=== PATIENT | male | born 1955 | race Two or more races ===

== ENCOUNTER 2021-03-26 06:02 | Emergency (ER) | payer OTHER ==
[~2021-03-26] VITALS: Ht 175.3 cm; Wt 97.7 kg
[2021-03-26] MEDS ORDERED: DIPH,PERTUSS(ACELL),TET VAC/PF 0.5 ML IM-VACC ONE ×2 (07:30→08:02)
[2021-03-26] MEDS ORDERED: LIDOCAINE 1%-EPI 1:100K, 20ML SQ ONE (07:30)
[2021-03-26] MEDS ORDERED: LIDOCAINE-MPF 1%, 5ML ONE ×2 (08:01→08:02)
[2021-03-26 09:21] VITALS: BP 124/74
== END 2021-03-26 09:23 | disposition home or self-care (01) ==
LOC: ED 09:20
DX: S01.01XA Laceration without foreign body of scalp, initial encounter (principal); S09.90XA Unspecified injury of head, initial encounter; W22.8XXA Striking against or struck by other objects, initial encounter; Y93.89 Activity, other specified; Y92.69 Other specified industrial and construction area as the place of occurrence of the external cause; Y99.0 Civilian activity done for income or pay
CPT/HCPCS: 12002; 90471; 90715; 99283

== ENCOUNTER 2021-04-05 14:05 | Emergency (ER) | payer OTHER ==
[~2021-04-05] VITALS: Ht 160 cm; Wt 97.4 kg
[2021-04-05 14:07] VITALS: BP 152/91
== END 2021-04-05 15:03 ==
LOC: ED 14:50
DX: S01.01XD Laceration without foreign body of scalp, subsequent encounter (principal); X58.XXXD Exposure to other specified factors, subsequent encounter
CPT/HCPCS: 99281